=== PATIENT | female | born 1955 | race Caucasian/White ===

== ENCOUNTER → 2017-10-25 | Outpatient (CLI) | payer OTHER | LOC: FIMAGING 09:06 | PROVIDERS: ATTEND Family Medicine | DX: Z12.31 Encounter for screening mammogram for malignant neoplasm of breast (principal) ==

== ENCOUNTER 2018-08-02 18:56 | Inpatient (IN) | payer OTHER ==
[2018-08-02] MEDS ORDERED: HYDROmorphONE/DILAUDID 2 MG/ML INJ IVP ONE (19:02)
[2018-08-02] MEDS ORDERED: NS 1,000 ML IV ONE (19:02)
--- NOTE | 2018-08-02 19:02 | EDPHY ---
H & P Time Seen by Provider: 08/02/18 19:01 HPI/ROS: Chief complaint. Full trauma activation HPI. Patient is 63-year-old female here by EMS is full trauma activation. The patient fell down 5 brick stairs. Did not strike her head or lose consciousness. She has injuries to her low left arm and left knee. She denies neck pain or back pain. Denies chest pain or shortness of breath. No abdominal pain. No injury to right arm or right leg. Injury occurred just prior to arrival. C-spine is immobilized per EMS. 14 mg of morphine prior to arrival per EMS ROS 10 systems were reviewed and negative with the exception of the elements mentioned in the history of present illness Past Medical/Surgical History: Past medical history is significant for orthopedic surgery Social History: , nonsmoker, no alcohol Physical Exam: General Appearance: Alert well-developed female moderate to severe distress. Vital signs significant for heart rate 112 Eyes: Pupils equal and round no pallor or injection. ENT, hemotympanum or Aviles sign. No oral pharyngeal or dental trauma. No evidence of trauma to the head Respiratory: There are no retractions, lungs are clear to auscultation. Cardiovascular: Regular rate and rhythm with tachycardia Gastrointestinal: Abdomen is soft and nontender, no masses, bowel sounds normal. Neurological: Awake and alert, sensory and motor exams grossly normal. Skin: Superficial abrasion to area just above her left knee Musculoskeletal: Neck is restrained but nontender to palpation. T, L, S spine is nontender Extremities pain without significant deformity to the left wrist. Swelling to the left knee and I do not feel her patella. Psychiatric: Patient is oriented X 3, there is no agitation. Constitutional: Initial Vital Signs Temperature (C) 36.2 C 08/02/18 18:55 Heart Rate 112 H 08/02/18 18:55 Respiratory Rate 26 H 08/02/18 18:55 Blood Pressure 165/91 H 08/02/18 18:55 O2 Sat (%) 100 08/02/18 18:55 O2 Delivery Mode Nasal Cannula O2 (L/minute) 3 Allergies/Adverse Reactions: No Known Allergies Allergy (Unverified 08/02/18 19:58) Medical Decision Making - Diagnostics Imaging Results: Imaging Impressions Cervical Spine CT 08/02/18 19:02 Impression: 1. No significant intracranial abnormality seen. 2. Mild anterior wedge compression superior endplate of C7 of indeterminate age. Clinical correlation recommended. If symptoms worsen, additional imaging may be necessary. Findings discussed with Dr. Sylvester Zhang at 1935 hour, 08/02/2018. Chest X-Ray 08/02/18 19:02 Impression: 1. No acute abnormality seen about the chest. Elbow X-Ray 08/02/18 19:02 Impression: Normal left elbow series. Head CT 08/02/18 19:02 Impression: 1. No significant intracranial abnormality seen. 2. Mild anterior wedge compression superior endplate of C7 of indeterminate age. Clinical correlation recommended. If symptoms worsen, additional imaging may be necessary. Findings discussed with Dr. Sylvester Zhang at 1935 hour, 08/02/2018. Humerus X-Ray 08/02/18 19:03 Impression: Negative left humerus series. Tibia/Fibula X-Ray 08/02/18 19:03 Impression: 1. No acute abnormality seen left tibia and fibula. 2. Patellar fracture Head and cervical spine CT reviewed by me and discussed with Dr. Young shows wedge compression to the superior endplate of C7. No intracranial trauma. Chest x-ray interpreted by me is normal Left elbow is normal Left humerus is normal Left tibia fibula shows patellar fracture Femur shows no fracture Procedures: IV normal saline, monitor Dilaudid for pain Patient is placed in sugar-tong splint left forearm as well as a long leg knee immobilizer. Post splint application reviewed by me shows good anatomic position and distal motor vascular sensitivity to be intact Patient is found to have potassium of 3. Her IV fluids or change to have potassium in them. Dr. Zhang is present on patient arrival I consulted discussed the case with Dr. Preston for Orthopedics who recommends the above splints. He will see the patient in the morning Patient and family and I discussed imaging and lab results. We discussed treatment plan including recommendation for admission they expressed understanding and agreement ED Course/Re-evaluation: Patient remains stable Patient relates that she had a previous neck fracture. She does have an evidence of T7 endplate compression however it does not appear to be acute CT and she has no cervical spine tenderness. The cervical collar is discontinued by Dr. Zhang Differential Diagnosis: I considered intracranial injuries, spine injuries, chest abdomen injuries. It appears the patient has left distal radius and ulna fracture as well as patella fracture that will require surgery - Data Points Laboratory Results: Laboratory Results 08/02/18 19:10 08/02/18 19:10 08/02/18 08/02/18 08/02/18 19:15 19:10 19:10 WBC RBC Hgb POC Hgb 13.6 gm/dL gm/dL (12.6-16.3) Hct POC Hct 40 % % (38-47) MCV MCH MCHC RDW Plt Count MPV Neut % (Auto) Lymph % (Auto) [place] % (Auto) Eos % (Auto) Baso % (Auto) Nucleat RBC Rel Count Absolute Neuts (auto) Absolute Lymphs (auto) Absolute Monos (auto) Absolute Eos (auto) Absolute Basos (auto) Absolute Nucleated RBC Immature Gran % Immature Gran # PT INR APTT POC Sodium 143 mEq/L mEq/L (135-145) Sodium 137 mEq/L mEq/L (135-145) POC Potassium 2.3 mEq/L L* mEq/L (3.3-5.0) Potassium 3.0 mEq/L L mEq/L (3.5-5.2) POC Chloride 108 mEq/L mEq/L (97-110) Chloride 106 mEq/L mEq/L (97-110) Carbon Dioxide 18 mEq/l L mEq/l (22-31) Anion Gap 13 mEq/L mEq/L (6-14) POC BUN 11 mg/dL mg/dL (7-23) BUN 13 mg/dL mg/dL (7-23) Creatinine 0.6 mg/dL mg/dL (0.6-1.0) POC Creatinine 0.5 mg/dL L mg/dL (0.6-1.0) Estimated GFR > 60 Glucose 153 mg/dL H mg/dL (70-100) POC Glucose 151 mg/dL H mg/dL (70-100) Calcium 9.2 mg/dL mg/dL (8.5-10.4) Patient ABO/Rh A POSITIVE Antibody Screen NEGATIVE 08/02/18 08/02/18 19:10 19:10 WBC 6.11 10^3/uL 10^3/uL (3.80-9.50) RBC 4.45 10^6/uL 10^6/uL (4.18-5.33) Hgb 13.4 g/dL g/dL (12.6-16.3) POC Hgb Hct 40.1 % % (38.0-47.0) POC Hct MCV 90.1 fL fL (81.5-99.8) MCH 30.1 pg pg (27.9-34.1) MCHC 33.4 g/dL g/dL (32.4-36.7) RDW 12.8 % % (11.5-15.2) Plt Count 252 10^3/uL 10^3/uL (150-400) MPV 9.8 fL fL (8.7-11.7) Neut % (Auto) 39.2 % L % (39.3-74.2) Lymph % (Auto) 50.2 % H % (15.0-45.0) [place] % (Auto) 8.2 % % (4.5-13.0) Eos % (Auto) 1.3 % % (0.6-7.6) Baso % (Auto) 0.8 % % (0.3-1.7) Nucleat RBC Rel Count 0.0 % % (0.0-0.2) Absolute Neuts (auto) 2.39 10^3/uL 10^3/uL (1.70-6.50) Absolute Lymphs (auto) 3.07 10^3/uL H 10^3/uL (1.00-3.00) Absolute Monos (auto) 0.50 10^3/uL 10^3/uL (0.30-0.80) Absolute Eos (auto) 0.08 10^3/uL 10^3/uL (0.03-0.40) Absolute Basos (auto) 0.05 10^3/uL 10^3/uL (0.02-0.10) Absolute Nucleated RBC 0.00 10^3/uL 10^3/uL (0-0.01) Immature Gran % 0.3 % % (0.0-1.1) Immature Gran # 0.02 10^3/uL 10^3/uL (0.00-0.10) PT 13.4 SEC SEC (12.0-15.0) INR 1.00 (0.83-1.16) APTT 26.4 SEC SEC (23.0-38.0) POC Sodium Sodium POC Potassium Potassium POC Chloride Chloride Carbon Dioxide Anion Gap POC BUN BUN Creatinine POC Creatinine Estimated GFR Glucose POC Glucose Calcium Patient ABO/Rh Antibody Screen Medications Given: Discontinued Medications Hydromorphone HCl (Dilaudid) 1 mg IVP EDNOW ONE Stop: 08/02/18 19:03 Last Admin: 08/02/18 19:15 Dose: 1 mg Sodium Chloride (Ns) 1,000 mls @ 0 mls/hr IV ONCE ONE; Wide Open PRN Reason: Protocol Stop: 08/02/18 19:03 Last Admin: 08/02/18 19:15 Dose: 1,000 mls Ondansetron HCl (Zofran) 4 mg IVP EDNOW ONE Stop: 08/02/18 20:16 Last Admin: 08/02/18 20:18 Dose: 4 mg Point of Care Test Results: Chemistry 08/02/18 19:15 POC Sodium 143 mEq/L mEq/L (135-145) POC Potassium 2.3 mEq/L L* mEq/L (3.3-5.0) POC Chloride 108 mEq/L mEq/L (97-110) POC BUN 11 mg/dL mg/dL (7-23) POC Creatinine 0.5 mg/dL L mg/dL (0.6-1.0) POC Glucose 151 mg/dL H mg/dL (70-100) ISTAT H&H 08/02/18 19:15 POC Hgb 13.6 gm/dL gm/dL (12.6-16.3) POC Hct 40 % % (38-47) Departure - Departure Disposition: [facility] Inpatient Acute Clinical Impression: Trauma Patellar fracture Qualifiers: Encounter type: initial encounter Fracture type: closed Fracture morphology: longitudinal Fracture alignment: displaced Laterality: left Qualified Code(s): S82.022A - Displaced longitudinal fracture of left patella, initial encounter for closed fracture Radius fracture Qualifiers: Encounter type: initial encounter Radius location: distal Fracture type: closed Fracture morphology: unspecified fracture morphology Laterality: left Qualified Code(s): S52.502A - Unspecified fracture of the lower end of left radius, initial encounter for closed fracture Condition: Fair
[2018-08-02 19:21] LABS: PLATELET COUNT 252 10^3/uL (150-400)
[2018-08-02] MEDS ORDERED: ONDANSETRON 4 MG/2 ML VIAL IVP PRN (19:58)
[2018-08-02] MEDS ORDERED: POTASSIUM Cl (KCl) 20 MEQ in 1/2 NS 1,000 ML IV SCH (20:00)
[2018-08-02 20:08] LABS: PROTIME(PATIENT) 13.4 SEC (12.0-15.0)
[2018-08-02] MEDS ORDERED: ONDANSETRON 4 MG/2 ML VIAL IVP ONE (20:15)
[2018-08-02] MEDS: D5W 1/2 NS W/ 20 KCl/L 1,000 ML IV SCH (20:27)
[2018-08-02] MEDS ORDERED: POTASSIUM CL 20 MEQ/15 ML UDCUP PO ONE ×2 (20:32→22:45)
--- NOTE | 2018-08-02 21:12 | CPEKG ---
Test Reason : OPEN Blood Pressure : / mmHG Vent. Rate : 069 BPM Atrial Rate : 069 BPM P-R Int : 178 ms QRS Dur : 113 ms QT Int : 425 ms P-R-T Axes : 074 -03 049 degrees QTc Int : 456 ms Sinus rhythm Incomplete right bundle branch block Low voltage, precordial leads Confirmed by Patrick Olson ([id number]) on 08/02/2018 9:11:50 PM Referred By: Confirmed By:Patrick Olson
[2018-08-02] MEDS ORDERED: PROMETHAZINE HCL 25 MG/ML INJ IVP ONE (21:14)
[2018-08-02] MEDS ORDERED: ceFAZolin 2 GM/DEXTROSE 100 ML IV ONE (21:20)
--- NOTE | 2018-08-02 21:21 | GHP ---
DATE OF ADMISSION: 08/02/2018 CHIEF COMPLAINT: Fall. HISTORY OF PRESENT ILLNESS: This is a 63-year-old female who [facility] as [facility] full [facility] activation. Briefly, the patient thought it was book club night and was at a friend's house in [place], realized that the friends were not home, was subsequently walking down the steps, and sustained a fall outside approximately 4 steps, falling onto her left side. The patient laid there in pain for a while, was eventually able to get to her phone, call her , who called EMS, who subsequently found the patient. She was lying for probably about a 0.5 hour before being f ound. On arrival she was in extremis, complaining of left upper and left lower extremity pain. Was subsequently transported here as a full trauma activation. Her vitals en route were stable. She rec eived 14 mg of morphine and was still complaining of a significant amount of mostly left upper extrem ity pain. On arrival she was protecting her airway. Her breathing was normal and her circulation wa s normal. She denies hitting her head or having any loss of consciousness and is mainly complaining of the above. PAST MEDICAL HISTORY: Significant for osteoporosis and multiple fractures including left hip and rig ht upper extremity in the past. PAST SURGICAL HISTORY: ORIF of left hip and right upper extremity. CURRENT MEDICATIONS: None. ALLERGIES: None. FAMILY HISTORY: Noncontributory. 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 Denies any illicit drug use. REVIEW OF SYSTEMS: A full 10-point review was performed. PHYSICAL EXAMINATION: VITAL SIGNS: Blood pressure 165/91. Heart rate was 112. She was 100% on 3 L , and her temperature was 36.2 degrees Celsius. CONSTITUTIONAL: She is uncomfortable and distressed . She is otherwise alert and able to answer questions. EYES: Her pupils are equal, round, and reac tive to light and accommodation. She has anicteric sclerae. Extraocular movements are intact. EARS , NOSE, MOUTH, AND THROAT: She has moist mucous membranes. Her hearing is normal. Her ears appear normal. She has normal dentition. She is not missing any teeth and her bite is symmetric. CARDIOVA SCULAR: She has a regular rate and rhythm without any murmurs, rubs, or gallops. She was initially tachycardic. This has resolved to a normal sinus rhythm. RESPIRATORY: She has no respiratory distr ess, rales, or rhonchi. She is otherwise clear to auscultation. She has no palpable step-offs, ches t tenderness, or crepitus appreciated. GI: She has normoactive bowel sounds. ABDOMEN: Soft, nondi stended, nontender. PELVIS: Stable to both AP and lateral compression. SKIN: Warm, normal color, no rashes or abrasions anywhere on her body. There is no fluctuance or induration identified. MUSCU LOSKELETAL: She is complaining of left upper and left lower extremity pain. She has been able to mo ve the left upper extremity distal to the left shoulder, and it has subsequently been splinted. Left lower extremity: Again, significant amount of pain at the knee. Distal neurovascular is intact. D P and PT pulses as well as radial pulses are 2+. EXTREMITIES: Warm. NEURO: Intact to both light t ouch and pain. NEUROLOGIC: She is alert and oriented x3. She was initially fairly worked up, but t his has resolved now and she is much more comfortable. Cranial nerves 2-12 are intact. She has no w eakness, no numbness. PSYCH: She is interacting appropriately. She is not anxious or encephalopath ic. She has a linear thought process. LYMPHATIC/HEMATOLOGIC/IMMUNOLOGIC: She has no cervical groin or supraclavicular lymphadenopathy appreciated. LABORATORY DATA: White blood cell count is normal at 6. H and H are stable at 13 and 40. Platelets are 252. Coags are normal with an INR of 1.00. Chemistry is remarkable for a low potassium at 3. Her CO2 is low at 18, and her glucose is high at 153. IMAGING: Includes a CT of her head, C-spine. She had multiple plain films of her left upper extremi ty including shoulder, humerus, elbow, distal forearm, as well as her left lower extremity including her femur, knee, and tib-fib. All of these were personally reviewed. Injuries include a left distal radius and ulnar fracture as well as a left-sided patellar fracture. ASSESSMENT AND PLAN: This is a 63-year-old female status post mechanical fall. No loss of conscious ness with an isolated left distal radius and ulnar fracture as well as a left-sided patellar fracture . The patient will be subsequently splinted in the emergency department. Her potassium will be repl aced. She will be n.p.o. at midnight. Orthopedics consultation for her above injuries. IV pain con trol as needed. Plan was discussed with the ED physician, Dr. Olson. /[id number]/MODL
[2018-08-02] MEDS ORDERED: DIAZEPAM 10 MG/2 ML SYR IVP ONE (21:47)
[2018-08-02] MEDS ORDERED: DIAZEPAM 5 MG/ML 1 ML SYR IVP ONE (22:00)
[2018-08-02] MEDS: HYDROmorphONE/DILAUDID 1 MG/ML INJ IVP PRN (22:47)
[2018-08-03] MEDS: HYDROmorphONE/DILAUDID 1 MG/ML INJ IVP PRN ×2 (06:12→09:27)
--- NOTE | 2018-08-03 08:03 | GCON ---
ORTHOPEDIC CONSULTATION DATE OF CONSULTATION: 08/02/2018 REASON FOR CONSULTATION: 1. Left distal radius and ulna fractures. 2. Left patella fracture. HISTORY OF PRESENT ILLNESS: Anil is a 63-year-old female, who fell down about 5 stairs tonight in t he dark, did not lose consciousness. Sustained a patella fracture and a left wrist fracture. She wa s brought to the Emergency Department as a full trauma activation. Evaluated in the trauma bay and f ound to have the above orthopedic injuries. She was admitted to the trauma service. I was consulted for the wrist and the injury. PRIOR MEDICAL HISTORY: She has had multiple orthopedic procedures with implants. Medical history no ne. SOCIAL HISTORY: She lives here in town. Does not smoke. Does not drink alcohol. Avid hiker. REVIEW OF SYSTEMS: No loss of consciousness. No chest pain. No shortness of breath. Otherwise, re view of systems unremarkable. PHYSICAL EXAM: GENERAL: Healthy-appearing 63-year-old female, who is evaluated in the trauma bay. She has a splint on her left arm, knee immobilizer on the left knee. HEENT: Normocephalic, atraumat ic. Extraocular muscles intact. NECK: Supple. No lymphadenopathy. No JVD. CHEST: Clear to ausc ultation. CARDIOVASCULAR: Regular rate and rhythm. ABDOMEN: Soft, nontender, nondistended. EXTRE MITIES: Splint is fitting appropriately on the left upper extremity. She is moving her fingers. Se nsation is intact in median nerve distribution. 2+ dorsalis pedis pulse. Lower extremity knee immob ilizer fit snugly. She is able to wiggle her toes. She has 5/5 ankle dorsiflexion, plantar flexion, strength 1+ dorsalis pedis, posterior tibial pulses. Thigh and lower extremity compartments are sof t. X-RAYS: Knee x-rays taken in the hospital show displaced horizontal patella fracture in 2 large frag ments. Wrist fracture shows a radial styloid and ulnar styloid fracture both nondisplaced. ASSESSMENT: 1. Displaced left patella fracture. 2. Nondisplaced left distal radius fracture. PLAN: We spent 15 minutes reviewing the plan of care and imaging. I recommend proceeding with an op en reduction, internal fixation of left patella. We will plan on this tomorrow at approximately 4:30 in the afternoon. As far as the wrist fracture I think this can be treated non-operatively although I did explain if she loses reduction we would need to proceed with fixation. We will start with a s plint and then transition to a cast as swelling allows over the next 7-10 days. We will keep her n.p .o. after 8 a.m. tomorrow morning. She will be admitted initially to the trauma service. /[id number]/MODL
--- NOTE | 2018-08-03 09:46 | PDMN ---
Medical Necessity Medical necessity: Pt meets inpt criteria per MD order and Musculoskeletal Surgery or Procedure GRG. 63 y/o s/p mechanical fall down stairs, sustained isolated L distal radius and ulnar fx and L patellar fx which will require surgical intervention of ORIF of patella later today. Also, hypokalemic w/K as low as 2.3. IVF, K replacement, IV Dilaudid for pain. Anticipate>2MN for pending surg and post-op care.
--- NOTE | 2018-08-03 10:14 | TRAUMAPNT ---
Trauma Tertiary Progress Note New Findings: none Assessment/Plan: pt with distal radius fx, left patella fx heent wnl lungs clearsternum ribs wnl abd soft pelvis evangelista neuro intact assess: tertiaty survey shows no new injuries. plan: orif l patella later today. Objective: Vital Signs Temp Pulse Resp BP Pulse Ox 36.9 C 68 16 100/54 L 97 08/03/18 07:37 08/03/18 07:37 08/03/18 07:37 08/03/18 07:37 08/03/18 07:37 08/02/18 08/03/18 08/04/18 05:59 05:59 05:59 Intake Total 1750 Output Total 550 Balance 1200 PT 13.4 SEC (12.0-15.0) 08/02/18 19:10 INR 1.00 (0.83-1.16) 08/02/18 19:10
--- NOTE | 2018-08-03 11:06 | ASMTCMCOM ---
CM Note CM Note Notes: CM met with pt and , Mariusz. Pt presented after falling down stairs. Pt has history of osteoporosis and multiple fractures including hip in the past. Pt reports she previously was in outpatient PT after she broke her hip but could not recall the name of company. Pt reported concerns about insurance being out of network. CM emailed financial counseling. Pending OT/PT evals. Pts is supportive. Plan: TBD. Date Signed: 08/03/2018 11:05 AM Electronically Signed By:MELODIE Almaguer
[2018-08-03] MEDS: D5W 1/2 NS W/ 20 KCl/L 1,000 ML IV SCH (15:49)
[2018-08-03] MEDS ORDERED: LR 1,000 ML IV ONE (16:06)
[2018-08-03] MEDS ORDERED: BUPIVACAINE/EPI 0.5% 30 ML SDV ONE (16:28)
[2018-08-03] MEDS ORDERED: POLYMYXIN B SULFATE 500,000 UNIT/10 ML SYR IRR ONE (16:29)
[2018-08-03] MEDS ORDERED: BACITRACIN 50,000 UNITS/10 ML SYR IRR ONE (16:29)
[2018-08-03] MEDS ORDERED: MIDAZOLAM 2 MG/2 ML VIAL IVP ONE (16:31)
[2018-08-03] MEDS ORDERED: HYDROmorphONE/DILAUDID 2 MG/ML INJ IVP PRN (16:31)
[2018-08-03] MEDS ORDERED: ONDANSETRON 4 MG/2 ML VIAL IVP PRN (16:31)
[2018-08-03] MEDS ORDERED: fentaNYL 100 MCG/2 ML INJ IVP PRN (16:31)
[2018-08-03] MEDS ORDERED: oxyCODONE IR 5 MG TAB PO PRN (16:31)
[2018-08-03] MEDS ORDERED: DEXAMETHASONE 4 MG/ML VIAL IVP PRN (16:31)
[2018-08-03] MEDS ORDERED: ALBUTEROL 3 ML DEYVIAL IH PRN (16:31)
[2018-08-03] MEDS ORDERED: ACETAMINOPHEN 500 MG TAB PO PRN (16:31)
[2018-08-03] MEDS ORDERED: NALOXONE HCL 0.4 MG/ML INJ IVP PRN (16:31)
--- NOTE | 2018-08-03 16:33 | PDANEPAE ---
ANE History of Present Illness Patella Fx ANE Past Medical History - Pulmonary History Hx Oxygen in Use at Home: No Hx Sleep Apnea: No Sleep Apnea Screening Result - Last Documented: Negative - Endocrine History Hx Diabetes: No - Chronic Pain History Chronic Pain: No ANE Review of Systems Review of Systems: ANE Patient History - Allergies Allergies/Adverse Reactions: No Known Allergies Allergy (Unverified 08/02/18 19:58) - Home Medications Home Medications: NK [No Known Home Meds] 08/02/18 [Last Taken Unknown] - NPO status NPO Since - Liquids (Date): 08/03/18 NPO Since - Liquids (Time): 00:00 NPO Since - Solids (Date): 08/03/18 NPO Since - Solids (Time): 00:00 - Smoking Hx Smoking Status: Never smoked ANE Labs/Vital Signs - Labs Result Diagrams: 08/02/18 19:10 08/02/18 19:10 - Vital Signs Blood Pressure: 129/76 Heart Rate: 79 Respiratory Rate: 18 O2 Sat (%): 98 Height: 170.18 cm Weight: 59 kg ANE Physical Exam - Airway Neck exam: FROM Mallampati Score: Class 2 - Pulmonary Pulmonary: clear to auscultation - Cardiovascular Cardiovascular: regular rate and rhythym - ASA Status ASA Status: II ANE Anesthesia Plan Anesthesia Plan: GA w LMA
[2018-08-03] MEDS ORDERED: CEFAZOLIN 2 GM/DEXTROSE/100 ML BAG IV ONE (16:43)
[2018-08-03] MEDS ORDERED: ceFAZolin 2 GM/DEXTROSE 100 ML IV ONE (17:00)
[2018-08-03] MEDS ORDERED: LIDOCAINE 2% 5 ML SDV ONE (17:02)
[2018-08-03] MEDS ORDERED: PROPOFOL 200 MG/20 ML VIAL ONE (17:02)
[2018-08-03] MEDS ORDERED: fentaNYL 100 MCG/2 ML INJ ONE (17:19)
[2018-08-03] MEDS ORDERED: ONDANSETRON 4 MG/2 ML VIAL ONE (17:57)
[2018-08-03] MEDS ORDERED: DEXAMETHASONE 4 MG/ML VIAL ONE (17:57)
[2018-08-03] MEDS ORDERED: ONDANSETRON DISINTEGRATING 4 MG TAB PO PRN (18:14)
[2018-08-03] MEDS ORDERED: TEMAZEPAM 15 MG CAP PO PRN (18:14)
[2018-08-03] MEDS ORDERED: MAGNESIUM HYDROXIDE 30 ML UDCUP PO PRN (18:14)
[2018-08-03] MEDS ORDERED: BISACODYL 10 MG SUPP PR PRN (18:14)
[2018-08-03] MEDS ORDERED: CYCLOBENZAPRINE 10 MG TAB PO PRN (18:14)
[2018-08-03] MEDS ORDERED: LACTULOSE 20 GM/30 ML UDCUP PO PRN (18:14)
[2018-08-03] MEDS ORDERED: diphenhydrAMINE 25 MG CAP PO PRN (18:14)
[2018-08-03] MEDS ORDERED: POLYETHYLENE GLYCOL 3350 17 GM PKT PO PRN (18:14)
[2018-08-03] MEDS ORDERED: METOCLOPRAMIDE 10 MG/2 ML VIAL IVP PRN (18:14)
[2018-08-03] MEDS ORDERED: PROMETHAZINE HCL 25 MG SUPPR PR PRN (18:14)
[2018-08-03] MEDS ORDERED: DIPHENOXYLATE/ATROPINE LOMOTIL 1 TAB PO PRN (18:14)
[2018-08-03] MEDS ORDERED: PROMETHAZINE HCL 25 MG/ML INJ IVP PRN (18:14)
--- NOTE | 2018-08-03 18:14 | POSTOPPROG ---
Post Op Note Date of Operation: 08/03/18 Surgeon: Gian Preston Anesthesiologist: jacinda Anesthesia: GET(General Endotracheal) Pre-op Diagnosis: displaced LT patella fracture Post-op Diagnosis: same Procedure: ORIF LT patella Findings: displaced fracture Inf/Abcess present in the surg proc area at time of surgery?: No EBL: Minimal Complications: none
--- NOTE | 2018-08-03 18:15 | POSTANESTH ---
Post Anesthetic Evaluation Cardiovascular Status: Normal, Stable Respiratory Status: Normal, Stable Level of Consciousness/Mental Status: Can Participate in Eval, Mildly Sleepy, Arousable Pain Control: Adequate, Prn Tx Ordered Nausea/Vomiting Control: Adequate, Prn Tx Ordered Complications Possibly Related to Anesthesia: None Noted
[2018-08-03] MEDS ORDERED: LR 1,000 ML IV SCH (18:30)
[2018-08-03] MEDS ORDERED: HYDROmorphONE/DILAUDID 2 MG/ML INJ ONE (18:39)
[2018-08-03] MEDS: SENNOSIDES/DOCUSATE SODIUM TAB PO SCH (20:13)
[2018-08-03] MEDS: ASPIRIN 81 MG CHEWABLE TAB PO SCH (20:14)
[2018-08-04] MEDS: ACETAMINOPHEN 325 MG TAB PO SCH ×3 (00:53→13:58)
[2018-08-04] MEDS: KETOROLAC 15 MG/1 ML SDV IVP SCH ×3 (00:54→13:58)
--- NOTE | 2018-08-04 06:37 | GOP ---
DATE OF OPERATION: 08/03/2018 SURGEON: Gian Preston MD ANESTHESIA: General. ANESTHESIOLOGIST: Dr. Hernandez. PREOPERATIVE DIAGNOSIS: Displaced patella fracture, left. POSTOPERATIVE DIAGNOSIS: Displaced patella fracture, left. PROCEDURE PERFORMED: Open reduction and internal fixation, left patella fracture. FINDINGS: INDICATIONS: The patient is a 63-year-old female who fell down some stairs last night, sustained a d isplaced patella fracture and a nondisplaced distal radius fracture on the left. She was admitted to the hospital, brought to the operating room today for definitive fixation of her fractures. DESCRIPTION OF PROCEDURE: After appropriate informed consent was obtained, the patient was taken to the operating room, placed supine on the operating table. Time-out was performed. Patient was ident ified, correct site was identified, matched with available radiographs in the room. She received 2 g of Ancef preoperatively. Following the induction of general endotracheal anesthesia, the left lower extremity was prepped and draped in the usual sterile fashion. I exsanguinated the limb, inflated t he tourniquet to 250 mmHg. I made a standard midline incision directly over the patella. Soft tissu es were carefully dissected. The hematoma was evacuated from the joint. The cartilage on the unders arthur of the patella was in good shape as was the trochlear groove. I was able to reduce the fracture, hold it in place with pointed tenaculum clamps. There were 2 large fragments. There was 1 smaller lateral piece that was still attached to the paratenon. I then placed 2 guidewires from proximal to distal through the larger fragments, drilled the neocortex, and then placed 2 partially threaded tanner ulated screws, compressing the fracture nicely. We were then able to feed a FiberTape through there in a [id number] fashion around the patella, underneath the quadriceps tendon and patellar tendon , and tied it down beneath the quad tendon so the knot did not protrude, cinching down the patella. The wound was irrigated. The extensor retinaculum was closed with 0 Vicryl, superficial layers close d 2-0 Vicryl, skin was closed with a running subcuticular 3-0 Monocryl suture. I instilled 20 mL of 0.5% Marcaine with epinephrine around the knee. Sterile dressing was applied. She was placed back i nto a knee immobilizer, awakened from anesthesia, taken to the recovery room in satisfactory conditio n. There were no immediate intraoperative complications. TOTAL TOURNIQUET TIME: 39 minutes at 250 mmHg. COMPLICATIONS: None. DRAINS: None. IMPLANTS USED: Synthes 4.0 mm cannulated screws, FiberTape. /[id number]/MODL
[2018-08-04] MEDS: SENNOSIDES/DOCUSATE SODIUM TAB PO SCH (08:26)
[2018-08-04] MEDS: ASPIRIN 81 MG CHEWABLE TAB PO SCH (08:26)
[2018-08-04] MEDS: oxyCODONE IR 5 MG TAB PO PRN ×2 (08:26→14:00)
--- NOTE | 2018-08-04 10:11 | SOAPPROG ---
SOAP Progress Note Assessment/Plan: Assessment: 63 y/o F s/p fall down concrete steps with: Displaced L patella fx: s/p ORIF yesterday. Ok to WBAT per ortho. Nondisplaced L distal radial fx: nonop per ortho. Splinted. S: Doing well overall. Pain controlled. O: Alert Afebrile VSS HENT: normocephalic, atraumatic, mmm RRR CTA bilaterally, no increased WOB Abdomen: soft, nontender LUE: wrist in splint. No numbness/tingling LLE: knee in brace. +pedal pulses Plan: Dispo: home with home health care vs. rehab pending clinical course. Pt to work with PT today. Tertiary survey completed, no new injuries noted. 08/04/18 10:07 Objective: Vital Signs Temp Pulse Resp BP Pulse Ox 36.8 C 85 16 111/73 96 08/04/18 08:00 08/04/18 08:00 08/04/18 08:00 08/04/18 08:00 08/04/18 08:00 Laboratory Results 08/04/18 04:56 08/03/18 17:20 08/03/18 08/04/18 08/05/18 05:59 05:59 05:59 Intake Total 1750 690 Output Total 550 2750 Balance 1200 -2060 PT 13.4 SEC (12.0-15.0) 08/02/18 19:10 INR 1.00 (0.83-1.16) 08/02/18 19:10 ICD10 Worksheet Patient Problems: Problems Problem Status Onset Patellar fracture Acute Radius fracture Acute Trauma Acute
[2018-08-04 11:36] VITALS: BP 124/74
--- NOTE | 2018-08-04 12:36 | SOAPPROG ---
SOAP Progress Note Assessment/Plan: Assessment: Anil is POD# 1 s/p left patella ORIF. She also had distal radius fracture. She is doing well with pain control PE: Left short arm splint in place. NV intact. ROM of the digits intact. Left knee immobilizer in place. Dressing CDI. NV intact LLE. Calf is soft to compression without pain Plan: Plan for discharge today with home health, PT/OT. Prescription for pain medication in chart. Follow up in 14 days for repeat evaluation 08/04/18 12:35 Objective: Vital Signs Temp Pulse Resp BP Pulse Ox 36.4 C 77 15 124/74 H 94 08/04/18 11:33 08/04/18 11:57 08/04/18 11:57 08/04/18 11:33 08/04/18 11:57 Laboratory Results 08/04/18 04:56 08/03/18 17:20 08/03/18 08/04/18 08/05/18 05:59 05:59 05:59 Intake Total 1750 690 Output Total 550 2750 Balance 1200 -2060 PT 13.4 SEC (12.0-15.0) 08/02/18 19:10 INR 1.00 (0.83-1.16) 08/02/18 19:10 ICD10 Worksheet Patient Problems: Problems Problem Status Onset Patellar fracture Acute Radius fracture Acute Trauma Acute
--- NOTE | 2018-08-04 12:37 | PDIAF ---
- Diagnosis Diagnosis: Left patella fracture, Left distal radius fracture Code Status: Full Code - Medication Management Discharge Medications: electronically signed and located in the Home Medication List. - Orders Services needed: Home Care, Physical Therapy, Occupational Therapy Home Care Face to Face: I certify that this patient was under my care and that I had the required [id number] encounter meeting the encounter requirements on the discharge day. My findings support the fact that the patient is homebound as defined in Home Care Face to Face Continued: CMS Chapter 7 Medicare Benefits Manual 30.1.1 , The condition of the patient is such that there exists a normal inability to leave home and consequently, leaving home would require a considerable and taxing effort. Diet Recommendation: no restrictions on diet Diet Texture: Regular Texture Diet Additional Instructions: Anil is to be NWB LUE. WBAT LLE. She will be able to use the platform walker. Home health for PT/OT. Dressing may removed in 4 days. Knee immobilizer at all times. Follow up in 14 days for repeat evaluation and wound check ([phone] ) Prescription for pain medication in chart. Aspirin x 14 days post op. - Follow Up Care Current Providers and Referrals: Patient,NotPresent [Unknown] - As per Instructions
--- NOTE | 2018-08-04 13:43 | ASMTLACE ---
BRITTANI Length of stay for Answers: 3 days current admission Acuity / Level of Answers: Yes Care: Did the patient have an inpatient admission? # of Emergency department Answers: 1-2 visits in the last 6 months Score: 7 Date Signed: 08/04/2018 01:42 PM Electronically Signed By:Jaqueline Rm RN
== END 2018-08-04 16:20 | disposition home or self-care (01) | DRG 516 ==
LOC: EDUNIT# → F3N 22:18
PROVIDERS: ADMIT Surgery; ATTEND Surgery
PROC: 2W3DX1Z Immobilization of Left Lower Arm using Splint (ICD-10-PCS; 2018-08-02)
PROC: 0QSF04Z Reposition Left Patella with Internal Fixation Device, Open Approach (ICD-10-PCS; principal; 2018-08-03 16:30)
DX: S82.032A Displaced transverse fracture of left patella, initial encounter for closed fracture (principal); S52.502A Unspecified fracture of the lower end of left radius, initial encounter for closed fracture; W10.9XXA Fall (on) (from) unspecified stairs and steps, initial encounter; Y92.018 Other place in single-family (private) house as the place of occurrence of the external cause; Z87.81 Personal history of (healed) traumatic fracture; M81.0 Age-related osteoporosis without current pathological fracture
CPT/HCPCS: 82435-PO; 82565-PO; 82947-PO; 84132-PO; 84295-PO; 84520-PO; 85014-PO; 92523-GN; 96374; 97116-GP; 97161-GP; 97166-GO; 97530-GP; 97535-GO; A4565; C1713; C1769; J0690; J1100; J1170; J1885; J2250; J2270; J2405; J2550; J2704; J3010; J3360; L1830; L3984